=== PATIENT | male | born 1960 | race Two or more races ===

== ENCOUNTER 2018-02-19 15:20 | Outpatient (CLI) | payer OTHER ==
[~2018-02-19 15:20] MED LIST: CIPRO500 MG PO; PYRIDIUM DS200 MG PO
== END 2018-02-19 16:09 | disposition home or self-care (01) ==
LOC: RAD 501 15:20
DX: M25.512 Pain in left shoulder (principal)

== ENCOUNTER 2019-01-31 10:46 | Emergency (ER) | payer OTHER ==
[~2019-01-31] VITALS: Ht 165.1 cm; Wt 78.0 kg
[2019-01-31] MEDS ORDERED: NORVASC10 MG (10:56)
[2019-01-31] MEDS ORDERED: ZESTRIL10 MG (10:56)
== END 2019-01-31 12:37 | disposition home or self-care (01) ==
LOC: ER 10:46
DX: L02.412 Cutaneous abscess of left axilla (principal)

== ENCOUNTER 2019-04-17 12:13 | Emergency (ER) | payer OTHER ==
[~2019-04-17] VITALS: Ht 165.1 cm; Wt 79.4 kg
[~2019-04-17 12:13] MED LIST changes: +NORVASC10 MG; +ZESTRIL10 MG
== END 2019-04-17 18:25 | disposition home or self-care (01) ==
LOC: ER 12:13
DX: R10.84 Generalized abdominal pain (principal)

== ENCOUNTER → 2019-09-30 | Outpatient (CLI) | payer OTHER | END | disposition home or self-care (01) | LOC: RAD 13:19 | DX: M25.511 Pain in right shoulder (principal) ==

== ENCOUNTER 2022-09-02 11:17 | Emergency (ER) | payer OTHER ==
[~2022-09-02] VITALS: Ht 157.5 cm; Wt 81.6 kg
[2022-09-02] MEDS ORDERED: SIMVASTATIN80 MG (11:36)
== END 2022-09-02 18:11 | disposition home or self-care (01) ==
LOC: ER 11:17
DX: K59.2 Neurogenic bowel, not elsewhere classified (principal); I10 Essential (primary) hypertension; Z20.822 Contact with and (suspected) exposure to COVID-19; R42 Dizziness and giddiness

== ENCOUNTER → 2024-03-20 | Emergency (ER) | payer OTHER ==
[~2024-03-20] VITALS: Ht 165.1 cm; Wt 81.6 kg
[~2024-03-20] MED LIST changes: +KETOROLAC TROMETHAMINE 60 MG VIAL IM ONE; +SIMVASTATIN80 MG
== END | disposition home or self-care (01) ==
LOC: ER 11:56
DX: M94.0 Chondrocostal junction syndrome [Tietze] (principal); I10 Essential (primary) hypertension
CPT/HCPCS: 36415; 93005; 96372; 99282; J1885

== ENCOUNTER 2024-11-03 14:41 | Emergency (ER) | payer OTHER ==
[~2024-11-03] VITALS: Ht 165.1 cm; Wt 81.6 kg
[~2024-11-03 14:41] MED LIST changes: -KETOROLAC TROMETHAMINE 60 MG VIAL IM ONE
[2024-11-03] MEDS ORDERED: ONDANSETRON HCL 2 MG/ML VIAL ONE (16:39)
[2024-11-03] MEDS ORDERED: 0.9 % SODIUM CHLORIDE 1,000 ML IV SCH (16:45)
[2024-11-03] MEDS ORDERED: ONDANSETRON HCL 2 MG/ML VIAL IV ONE (16:45)
[2024-11-03] MEDS ORDERED: MORPHINE SULFATE 4 MG/ML VIAL IV ONE (16:45)
[2024-11-03 18:13] LABS: ALBUMIN 4.2 gm/dL (3.4-5.0); BILIRUBIN TOTAL 0.51 mg/dL (0.3-1.2); CALCIUM 9.2 mg/dL (8.5-10.1); CREATININE SERUM 1.01 mg/dL (0.70-1.30); GFR 74.37; GLOBULINA 4.3 G/DL (2.4-3.5); POTASSIUM 4.21 mEq/L (3.5-5.1); TOTAL PROTEIN 8.5 gm/dL (6.4-8.2)
[2024-11-03 18:53] LABS: HEMATOCRIT 44.5 % (39.0-48.0); HEMOGLOBIN 14.1 g/dL (13-16.00); MEAN CORPUSCULAR HEMOGLOBIN 21.8 pg (27.00-32.0); MEAN CORPUSCULAR HGB CONC 31.6 g/dl (32.0-36.0); PLATELET COUNT 184 K/uL (150-450); RED BLOOD COUNT 6.46 M/uL (4.00-6.00); RED CELL DISTRIBUTION WIDTH 14.7 % (11.5-14.5)
[2024-11-03 18:54] LABS: MEAN CELL VOLUME 68.9 fL (80.0-100.00)
[2024-11-03 19:03] LABS: PARTIAL THROMBOPLASTIN TIME 25.6 SECONDS (22.0-34.0); PROTHROMBIN TIME 10.9 SECONDS (9.0-11.5)
== END 2024-11-03 21:58 | disposition home or self-care (01) ==
LOC: ER 14:44
PROVIDERS: General Practice
DX: R51.9 Headache, unspecified (principal); Z20.822 Contact with and (suspected) exposure to COVID-19
CPT/HCPCS: 36415; 70460; Q9965

== ENCOUNTER 2024-11-04 14:02 | Emergency (ER) | payer OTHER ==
[~2024-11-04] VITALS: Ht 165.1 cm; Wt 81.6 kg
[2024-11-04] MEDS ORDERED: CEFTRIAXONE SODIUM 1,000 MG VIAL ONE (17:09)
[2024-11-04] MEDS ORDERED: LIDOCAINE HCL 1% 10ML VIAL ONE (17:09)
[2024-11-04] MEDS ORDERED: CEFTRIAXONE SODIUM 1,000 MG VIAL IM ONE (17:15)
[2024-11-04] MEDS ORDERED: MORPHINE SULFATE 2 MG/ML CARTRIDGE IV ONE (17:15)
== END 2024-11-04 17:29 | disposition home or self-care (01) ==
LOC: ER 14:05
DX: K08.89 Other specified disorders of teeth and supporting structures (principal); I10 Essential (primary) hypertension

== ENCOUNTER 2025-06-24 10:47 | Outpatient (CLI) | payer OTHER | END 2025-06-24 10:53 | disposition home or self-care (01) | LOC: RAD 10:47 | PROVIDERS: ATTEND Orthopaedic Surgery | DX: M54.2 Cervicalgia (principal); M25.511 Pain in right shoulder; M25.512 Pain in left shoulder ==